=== PATIENT | male | born 1960 | race Caucasian/White ===

== ENCOUNTER 2018-04-04 18:33 | Emergency (ER) | payer BC ==
[2018-04-04 20:32] VITALS: BP 147/83
--- NOTE | 2018-04-04 20:57 | UC ---
Throat Pain/Nasal Kraig HPI - HPI Summary HPI Summary: C/O sore throat with pain radiating up into the ears. 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 Started coughing today. Some frontal sinus pain. Nasal congestion. - History of Current Complaint Chief Complaint: UCGeneralIllness Stated Complaint: FEVER/CONGESTION/EARS/LARYNGITIS Time Seen by Provider: 04/04/18 20:35 Hx Obtained From: Patient Onset/Duration: Gradual Onset, Lasting Days - 5, Worse Since - today Severity: Severe Pain Intensity: 8 Cough: Nonproductive Associated Signs & Symptoms: Positive: Dysphagia, Hoarseness, Sinus Discomfort, Nasal Discharge, Fever Related History: Seasonal Allergies - Allergies/Home Medications Allergies/Adverse Reactions: Allergies Allergy/AdvReac Type Severity Reaction Status Date / Time No Known Allergies Allergy Verified 04/04/18 20:24 Home Medications: Home Medications Ibuprofen TAB* [Advil TAB*] 200 mg PO Q6H PRN 04/04/18 [History Confirmed ] PMH/Surg Hx/FS Hx/Imm Hx Previously Healthy: Yes - Surgical History Surgical History: Yes Surgery Procedure, Year, and Place: hernia repair. Tonsillectomy - Family History Known Family History: Positive: Cardiac Disease - Social History Occupation: Employed Full-time Lives: With Family Alcohol Use: Weekly Substance Use Type: None Smoking Status (MU): Former Smoker When Did the Patient Quit Smoking/Using Tobacco: 1997 Review of Systems All Other Systems Reviewed And Are Negative: Yes Constitutional: Positive: Fever, Chills, Fatigue ENT: Positive: Sore Throat, Sinus Congestion Respiratory: Positive: Cough Is Patient Immunocompromised?: No Physical Exam Triage Information Reviewed: Yes Appearance: No Pain Distress, Well-Nourished, Ill-Appearing Vital Signs: Initial Vital Signs Temp 98.2 F 04/04/18 20:26 Pulse 92 04/04/18 20:26 Resp 15 04/04/18 20:26 BP 147/83 04/04/18 20:26 Pulse Ox 100 04/04/18 20:26 Vital Signs Reviewed: Yes Eyes: Positive: Conjunctiva Clear ENT: Positive: Pharyngeal erythema, Nasal congestion, TMs normal, Hoarse voice. Negative: Sinus tenderness Neck exam: Normal Respiratory: Positive: Wheezing - expiratory wheeze with coughing Cardiovascular Exam: Normal Musculoskeletal Exam: Normal Neurological Exam: Normal Psychological Exam: Normal Skin Exam: Normal Throat Pain/Nasal Course/Dx - Differential Dx/Diagnosis Differential Diagnosis/HQI/PQRI: Laryngitis, Pharyngitis, URI Provider Diagnoses: Acute URI. Acute bronchospasm Discharge - Sign-Out/Discharge Documenting (check all that apply): Patient Departure All imaging exams completed and their final reports reviewed: No Studies - Discharge Plan Condition: Stable Disposition: HOME Prescriptions: predniSONE TAB* [Deltasone 20 MG TAB*] 60 mg PO DAILY #18 tab Patient Education Materials: Upper Respiratory Infection (ED), Wheezing (ED), Prednisone (By mouth) Referrals: Lee Mcgregor MD [Primary Care Provider] - - Billing Disposition and Condition Condition: STABLE Disposition: Home
[2018-04-04] MEDS ORDERED: predniSONE TAB* 20 MG PO ONE (20:59)
== END 2018-04-04 21:20 | disposition home or self-care (01) ==
LOC: UCCORT 18:33
DX: J06.9 Acute upper respiratory infection, unspecified (principal); J98.01 Acute bronchospasm; Z87.891 Personal history of nicotine dependence
CPT/HCPCS: 99202; G0463; J7512

== ENCOUNTER 2019-06-15 12:58 | Emergency (ER) | payer BC ==
[2019-06-15 13:50] VITALS: BP 120/76
--- NOTE | 2019-06-15 14:15 | UC ---
FLU HPI - HPI Summary HPI Summary: Pt presents with c/o sudden onset body aches, chills and cough X 2 days. - History of Current Complaint Chief Complaint: UCGeneralIllness Stated Complaint: FLU SYMPTOMS Time Seen by Provider: 06/15/19 13:45 Hx Obtained From: Patient Onset/Duration: Sudden Onset, Lasting Days, Still Present Severity Currently: Moderate Severity Initially: Mild Pain Intensity: 0 Associated Signs & Symptoms: Positive: Myalgia, Cough, Nasal Congestion Related Hx: Possible Flu/Infectious Exposure - Risk Factors Influenza Risk Factors: Negative - Allergy/Home Medications Allergies/Adverse Reactions: Allergies Allergy/AdvReac Type Severity Reaction Status Date / Time Penicillins Allergy See Comment Verified 06/15/19 13:51 Home Medications: Home Medications Ibuprofen TAB* [Advil TAB*] 200 mg PO Q6H PRN 06/15/19 [History Confirmed ] PMH/Surg Hx/FS Hx/Imm Hx Previously Healthy: Yes - Surgical History Surgical History: Yes Surgery Procedure, Year, and Place: hernia repair. Tonsillectomy - Family History Known Family History: Positive: Cardiac Disease - Social History Occupation: Employed Full-time Lives: With Family Alcohol Use: Occasionally Substance Use Type: None Smoking Status (MU): Former Smoker Have You Smoked in the Last Year: No When Did the Patient Quit Smoking/Using Tobacco: 1997 Review of Systems All Other Systems Reviewed And Are Negative: Yes Constitutional: Positive: Fever, Chills, Fatigue Eyes: Positive: Negative ENT: Positive: Negative Respiratory: Positive: Cough Cardiovascular: Positive: Negative Gastrointestinal: Positive: Negative Genitourinary: Positive: Negative Motor: Positive: Negative Neurovascular: Positive: Negative Musculoskeletal: Positive: Myalgia Neurological: Positive: Negative Psychological: Positive: Negative Is Patient Immunocompromised?: No Physical Exam Triage Information Reviewed: Yes Appearance: Well-Appearing Vital Signs: Initial Vital Signs Temp 99.9 F 06/15/19 13:46 Pulse 100 06/15/19 13:46 Resp 18 06/15/19 13:46 BP 120/76 06/15/19 13:46 Pulse Ox 97 06/15/19 13:46 Vital Signs Reviewed: Yes Eye Exam: Normal ENT: Positive: Nasal congestion Dental Exam: Normal Neck exam: Normal Respiratory Exam: Normal Cardiovascular Exam: Normal Cardiovascular: Positive: Tachycardia Musculoskeletal Exam: Normal Neurological Exam: Normal Psychological Exam: Normal Skin Exam: Normal Flu Course/Dx - Differential Dx/Diagnosis Differential Diagnosis/HQI/PQRI: Influenza, Upper Respiratory Infection Provider Diagnosis: Viral syndrome Discharge ED - Sign-Out/Discharge Documenting (check all that apply): Patient Departure All imaging exams completed and their final reports reviewed: No Studies - Discharge Plan Condition: Stable Disposition: HOME Patient Education Materials: Viral Syndrome (ED) Referrals: Lee Mcgregor MD [Primary Care Provider] - If Needed - Billing Disposition and Condition Condition: STABLE Disposition: Home
[2019-06-15 14:22] LABS: Influenza A Molecular NEGATIVE (Negative); Influenza B Molecular NEGATIVE (Negative)
== END 2019-06-15 14:30 | disposition home or self-care (01) ==
LOC: UCCORT 12:58
DX: B34.9 Viral infection, unspecified (principal); M79.10 Myalgia, unspecified site; R05 Cough; Z88.0 Allergy status to penicillin; Z87.891 Personal history of nicotine dependence
CPT/HCPCS: 99211; G0463